=== PATIENT | male | born 1945 | race Caucasian/White ===

== ENCOUNTER 2019-08-02 23:05 | Emergency (ER) | payer OTHER ==
[~2019-08-02] VITALS: Ht 172.7 cm; Wt 90.7 kg
[2019-08-02] MEDS ORDERED: MOTION RELIEF25 MG PO (23:30)
[2019-08-02] MEDS ORDERED: ASMANEX220 MC3 INH (23:31)
[2019-08-02] MEDS ORDERED: BENZ100A PO (23:31)
[2019-08-02] MEDS ORDERED: Ventolin/Prove6.7 GM INH (23:32)
[2019-08-03] MEDS ORDERED: Mucinex600 MG PO (00:09)
== END 2019-08-03 00:58 | disposition home or self-care (01) ==
LOC: ER 23:05
DX: J06.9 Acute upper respiratory infection, unspecified (principal); J44.9 Chronic obstructive pulmonary disease, unspecified; Z79.899 Other long term (current) drug therapy; Z79.51 Long term (current) use of inhaled steroids
CPT/HCPCS: 71046; 94640; 99283-25

== ENCOUNTER 2023-09-29 21:51 | Emergency (ER) | payer OTHER ==
[~2023-09-29] VITALS: Ht 177.8 cm; Wt 86.2 kg
[~2023-09-29 21:51] MED LIST: ASMANEX220 MC3 INH; BENZ100A PO; MOTION RELIEF25 MG PO; Mucinex600 MG PO; Ventolin/Prove6.7 GM INH
[2023-09-29 21:58] VITALS: BP 153/88
[2023-09-29] MEDS ORDERED: Diphth,Pertuss(Acell),Tet Vac 0.5 ML VIAL IM ONE (22:00)
[2023-09-29] MEDS ORDERED: Amoxicillin/Clavulanate K 875 MG Tab PO ONE (22:00)
[2023-09-29] MEDS ORDERED: Tetanus and Diphtheria Toxoid 0.5 ML INJ IM ONE (22:05)
[2023-09-29] MEDS ORDERED: AMOCLA875 PO (22:50)
== END 2023-09-29 23:15 | disposition home or self-care (01) ==
LOC: ER 21:51
DX: S61.451A Open bite of right hand, initial encounter (principal); W54.0XXA Bitten by dog, initial encounter; Z79.51 Long term (current) use of inhaled steroids
CPT/HCPCS: 12002; 90471; 90714; 90715; 99283-25; A9270